=== PATIENT | male | born 1965 | race Caucasian/White ===

== ENCOUNTER → 2018-04-20 | Outpatient (CLI) | payer MEDICARE, OTHER ==
--- NOTE | 2018-04-20 15:02 | EST ---
EXERCISE STRESS AGE: 52 SEX: M HT: 72 WT: 230 PROTOCOL: Hadley Stress Test STAGE: 3 DURATION OF EXERCISE: 7:10 HEART RATE REST: 79 BLOOD PRESSURE REST: 115/70 MAXIMUM HEART RATE ACHIEVED: 142 MAXIMUM BLOOD PRESSURE: 167/68 85% MPHR: 141 100% MPHR: 166 METS: 8.7 INDICATIONS: Abnormal EKG, chest pain. CLINICAL INFORMATION: Baseline rhythm is sinus mechanism, rate 79, right bundle branch block. Baseline blood pressure 115/70 mmHg. Patient exercised on Hadley protocol for 7 minutes, 10 seconds, reaching a peak rate of 142 beats per minute which is equal to 85% maximum predicted heart rate. Peak blood pressure 167/68 mmHg. Test was terminated due to fatigue. There was no chest pain. Electrocardiographic monitoring revealed no evidence of diagnostic ischemic ST deviation. CONCLUSION: 1. Average exercise tolerance with no symptoms of chest pain. 2. Nondiagnostic electrocardiograph stress testing secondary to baseline EKG abnormality. 3. If clinically indicated, an imaging stress test will be helpful. MMODL / IJN: [id number] /
== END ==
LOC: RADNMMAIN 10:27
PROVIDERS: ATTEND Family Medicine
DX: R07.9 Chest pain, unspecified (principal); R94.31 Abnormal electrocardiogram [ECG] [EKG]
CPT/HCPCS: 93017